=== PATIENT | female | born 1990 | race Caucasian/White ===

== ENCOUNTER 2016-12-29 16:21 | Emergency (ER) | payer SELFPAY ==
[~2016-12-29] VITALS: Ht 167.6 cm; Wt 106.3 kg
[2016-12-29 16:43] VITALS: BP 141/78
[2016-12-29] MEDS: DICYCLOMINE 20 MG/2 ML VIAL IM ONE (17:30)
[2016-12-29] MEDS: KETOROLAC 30 MG/ML VIAL IM ONE (17:30)
[2016-12-29 17:43] LABS: BASOPHILS # (AUTO) 0.1 K/uL (0.00-0.22); BASOPHILS % (AUTO) 0.9 % (0.0-2.0); EOSINOPHILS # (AUTO) 0.2 K/uL (0-0.4); EOSINOPHILS % (AUTO) 1.8 % (0.0-4.0); HEMOGLOBIN 12.3 g/dL (12.0-16.0); LYMPHOCYTES # (AUTO) 1.6 K/uL (2.5-16.5); MEAN CORPUSCULAR HEMOGLOBIN 24 pg (27-31); MEAN CORPUSCULAR HGB CONC 31 g/dL (33-37); MEAN CORPUSCULAR VOLUME 76 fL (80-94); MONOCYTES # (AUTO) 0.6 K/uL (0.8-1.0); MONOCYTES % (AUTO) 4.6 % (1.7-9.3); NEUTROPHILS # (AUTO) 9.9 K/uL (1.8-7.7); NEUTROPHILS % (AUTO) 79.7 % (42.2-75.2); PLATELET COUNT (AUTO) 241 K/uL (140-450); RED BLOOD CELL COUNT(AUTO) 5.11 MIL/uL (4.20-5.40); RED CELL DISTRIBUTION WIDTH 16.9 % (11.6-13.7); WHITE BLOOD COUNT (AUTO) 12.4 K/uL (4.8-10.8)
[2016-12-29 18:03] LABS: ANION GAP 14.6 (8-16); CARBON DIOXIDE 23.1 mmol/L (21-32); CREATININE 0.7 mg/dL (0.6-1.3); POTASSIUM 3.7 mmol/L (3.5-5.1)
[2016-12-29 18:09] LABS: ALBUMIN 3.9 g/dL (3.4-5.0); TOTAL BILIRUBIN 0.2 mg/dL (0.0-1.0)
[2016-12-29 18:53] VITALS: BP 141/78
== END 2016-12-29 18:54 | disposition home or self-care (01) ==
LOC: MED 16:21
DX: J06.9 Acute upper respiratory infection, unspecified (principal); R10.9 Unspecified abdominal pain; R19.7 Diarrhea, unspecified
CPT/HCPCS: 36415; 80053; 81002; 81025; 83690; 85025; 96372; 99284; J0500; J1885

== ENCOUNTER 2017-11-16 22:03 | Emergency (ER) | payer MEDICAID ==
[~2017-11-16] VITALS: Ht 167.6 cm; Wt 105.7 kg
[2017-11-16 22:12] VITALS: BP 128/93
--- NOTE | 2017-11-16 22:16 | NUR ---
Patient ambulated to bed 4. RN evaluating patient at bedside.
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
[2017-11-16] MEDS ORDERED: LORazepam 1 MG TAB PO ONE (22:50)
--- NOTE | 2017-11-16 23:30 | NUR ---
UNABLE TO GIVE ATIVAN PO DUE TO PT NOT HAVING A RIDE HOME. PT CALLED PT'S BOYFRIEND WITH NO ANSWER, WILL CHECK WITH PT LATER. PROVIDED PT WITH 24-HR PHARMACY LIST TO ROAD MACH[facility] RX TONIGHT.
--- NOTE | 2017-11-16 23:44 | NUR ---
PT DECIDED TO BE DISCHARGED HOME WITHOUT TAKING ATIVAN, PT UNABLE TO CONTACT PT'S BOYFRIEND
[2017-11-16 23:45] VITALS: BP 125/95
== END 2017-11-16 23:45 | disposition home or self-care (01) ==
LOC: MED 22:03
DX: R20.2 Paresthesia of skin (principal)
CPT/HCPCS: 81002; 81025; 99283

== ENCOUNTER 2018-01-27 20:53 | Emergency (ER) | payer MEDICAID ==
[~2018-01-27] VITALS: Ht 167.6 cm; Wt 104.3 kg
[2018-01-27 21:08] VITALS: BP 144/79
--- NOTE | 2018-01-27 21:10 | NUR ---
PT TRIAGED AND SENT TO ER LOBBY VSS
--- NOTE | 2018-01-27 22:48 | NUR ---
PT C/O N/D SINCE . C/O GEN WEAKNESS WELL. A/OX4, GCS 15, NO OTHER COMPLAINTS. HX---GEST DIABETES MEDS--- NONE
[2018-01-27] MEDS ORDERED: DICYCLOMINE 20 MG/2 ML VIAL IM ONE (23:20)
[2018-01-27 23:58] LABS: BASOPHILS % (AUTO) 0.5 % (0.0-2.0); EOSINOPHILS # (AUTO) 0.3 K/uL (0-0.4); EOSINOPHILS % (AUTO) 3.3 % (0.0-4.0); HEMATOCRIT 36.7 % (36-48); HEMOGLOBIN 11.6 g/dL (12.0-16.0); LYMPHOCYTES # (AUTO) 3.2 K/uL (2.5-16.5); LYMPHOCYTES % (AUTO) 31.1 % (20.5-51.1); MEAN CORPUSCULAR HEMOGLOBIN 23 pg (27-31); MEAN CORPUSCULAR HGB CONC 32 g/dL (33-37); MEAN CORPUSCULAR VOLUME 73.4 fL (80-94); MONOCYTES # (AUTO) 0.5 K/uL (0.8-1.0); MONOCYTES % (AUTO) 4.6 % (1.7-9.3); NEUTROPHILS # (AUTO) 6.2 K/uL (1.8-7.7); NEUTROPHILS % (AUTO) 60.5 % (42.2-75.2); PLATELET COUNT (AUTO) 205 K/uL (140-450); RED CELL DISTRIBUTION WIDTH 19.1 % (11.6-13.7); WHITE BLOOD COUNT (AUTO) 10.2 K/uL (4.8-10.8)
[2018-01-28 00:16] LABS: ALBUMIN 3.5 g/dL (3.4-5.0); ANION GAP 8.3 (8-16); CARBON DIOXIDE 29.7 mmol/L (21-32); CREATININE 0.7 mg/dL (0.6-1.3); TOTAL BILIRUBIN 0.1 mg/dL (0.0-1.0)
[2018-01-28 00:38] VITALS: BP 140/76
--- NOTE | 2018-01-28 00:38 | NUR ---
Patient discharged with v/s stable. Written and verbal after care instructions given and explained. Patient alert, oriented and verbalized understanding of instructions. Ambulatory with steady gait. All questions addressed prior to discharge. ID band removed. Patient advised to follow up with PMD. Rx of BENTYL given. Patient educated on indication of medication including possible reaction and side effects. Opportunity to ask questions provided and answered.
== END 2018-01-28 00:38 | disposition home or self-care (01) ==
LOC: MED 20:53
DX: R19.7 Diarrhea, unspecified (principal); R10.9 Unspecified abdominal pain; M79.10 Myalgia, unspecified site
CPT/HCPCS: 36415; 80053; 81002; 81025; 83690; 85025; 96372; 99284; J0500

== ENCOUNTER 2018-03-03 16:05 | Emergency (ER) | payer MEDICAID ==
[~2018-03-03] VITALS: Ht 167.6 cm; Wt 94.3 kg
[2018-03-03 16:09] VITALS: BP 135/86
--- NOTE | 2018-03-03 16:20 | NUR ---
PATIENT PRESENTS TO ED WITH C/O ABDOMINAL PAIN, VOMITING, DIARRHEA AND BODY ACHES SINCE LAST NIGHT. REPORTED 2 EPISODES OF VOMITING, 8X EPISODES OF DIARRHEA TOTAL. AAOX4 WITH EVEN AND STEADY GAIT; LUNGS CLEAR BL; HR EVEN AND REGULAR; PT DENIES ANY FEVER, CP, SOB, OR COUGH AT THIS TIME; PATIENT STATES PAIN OF 2/10 AT THIS TIME; VSS; PATIENT POSITIONED FOR COMFORT; HOB ELEVATED; BEDRAILS UP X2; BED DOWN. ER MD MADE AWARE OF PT STATUS.
--- NOTE | 2018-03-03 18:00 | NUR ---
Patient being evaluated by physician at bedside.
[2018-03-03] MEDS ORDERED: ACETAMINOPHEN 325 MG TAB PO ONE (18:10)
[2018-03-03 19:00] VITALS: BP 135/86
--- NOTE | 2018-03-03 19:00 | NUR ---
Patient discharged with v/s stable. Written and verbal after care instructions given and explained. Patient alert, oriented and verbalized understanding of instructions. Ambulatory with steady gait. All questions addressed prior to discharge. ID band removed. Patient advised to follow up with PMD. Rx of ZOFRAN, LOMOTIL, ACETAMINOPHEN given. Patient educated on indication of medication including possible reaction and side effects. Opportunity to ask questions provided and answered.
== END 2018-03-03 19:00 | disposition home or self-care (01) ==
LOC: MED 16:05
DX: R19.7 Diarrhea, unspecified (principal); R11.10 Vomiting, unspecified; R51 Headache; R10.9 Unspecified abdominal pain; E11.9 Type 2 diabetes mellitus without complications; I10 Essential (primary) hypertension
CPT/HCPCS: 81025; 99283

== ENCOUNTER 2021-01-19 22:22 | Emergency (ER) | payer MEDICAID ==
[~2021-01-19] VITALS: Ht 165.1 cm; Wt 113.4 kg
[2021-01-19 22:31] VITALS: BP 145/95
--- NOTE | 2021-01-19 22:38 | NUR ---
TO BED AMBULATORY
--- NOTE | 2021-01-19 22:46 | NUR ---
RYANNE ODOM AT BEDSIDE FOR MEDICAL EXAMINATION
[2021-01-19] MEDS ORDERED: AMOX-1000 PO (23:02)
[2021-01-19 23:07] VITALS: BP 145/95
--- NOTE | 2021-01-19 23:07 | NUR ---
SEEN AND DISCHARGED BY RYANNE ODOM. NO NURSING INTERVENTIONS NEEDED. Patient discharged with v/s stable. Written and verbal after care instructions given and explained. Patient alert, oriented and verbalized understanding of instructions. Ambulatory with steady gait. All questions addressed prior to discharge. ID band removed. Patient advised to follow up with PMD. Rx of AUGMENTIN [id number] given. Patient educated on indication of medication including possible reaction and side effects. Opportunity to ask questions provided and answered.
== END 2021-01-19 23:07 | disposition home or self-care (01) ==
LOC: MED 22:22
DX: S31.159A Open bite of abdominal wall, unspecified quadrant without penetration into peritoneal cavity, initial encounter (principal); I10 Essential (primary) hypertension; Z98.890 Other specified postprocedural states; Z79.899 Other long term (current) drug therapy; W54.0XXA Bitten by dog, initial encounter; Y93.89 Activity, other specified; Y92.89 Other specified places as the place of occurrence of the external cause; Y99.8 Other external cause status
CPT/HCPCS: 99283

== ENCOUNTER 2021-04-15 20:37 | Emergency (ER) | payer MEDICAID ==
[~2021-04-15 20:37] MED LIST: AMOX-1000 PO
--- NOTE | 2021-04-15 21:01 | NUR ---
1ST CALL IN LOBBY AND OUTSIDE WITH NO ANSWER.
--- NOTE | 2021-04-15 21:11 | NUR ---
PT CALLED FOR 2ND TIME IN LOBBY AND OUTSIDE. NO ANSWER.
--- NOTE | 2021-04-15 21:36 | NUR ---
CALLED FOR 3RD TIME WITH NO ANSWER. PATIENT LEFT WITHOUT BEING SEEN BY DR. WILLIS. NO FURTHER CARE PROVIDED FOR PATIENT.
== END 2021-04-15 21:01 | disposition left against medical advice (07) ==
LOC: MED 20:37
DX: Z53.21 Procedure and treatment not carried out due to patient leaving prior to being seen by health care provider (principal)